=== PATIENT | female | born 1970 | race Caucasian/White ===

== ENCOUNTER 2022-08-14 17:39 | Emergency (ER) | payer BC, SELFPAY ==
[2022-08-14 17:47] VITALS: BP 141/80; PULSE 82; RESP 16; TEMP 36.3; O2SAT 99
[2022-08-14 17:48] VITALS: BP 141/80; PULSE 82; RESP 16; TEMP 36.3; O2SAT 99
--- NOTE | 2022-08-14 17:52 | ED.URI ---
HPI - URI/Sore Throat General Chief Complaint: Upper Respiratory Infection Stated Complaint: cold flu Time Seen by Provider: 08/14/22 17:52 History of Present Illness HPI Narrative: PATIENT PRESENTS WITH SORE THROAT AND COUGH NEGATIVE COVID TEST AT HOME TODAY. NO TROUBLE SWALLOWING AND NO DROOLING NO KNOWN EXPOSURE. Related Data Home Medications Medication Instructions Recorded Confirmed rimegepant 75 mg disintegrating 75 mg PO ONCE PRN Headache 08/14/22 08/14/22 tablet (Nurtec ODT) trazodone 50 mg tablet 50 mg PO HS PRN Pain 08/14/22 08/14/22 Allergies Allergy/AdvReac Type Severity Reaction Status Date / Time iohexol Allergy Unknown Verified 08/14/22 17:46 [From contrast - CT, X-RAY] Review of Systems Review of Systems: CONSTITUTIONAL: DENIES CHILLS, OR SWEATS. REPORTS FEVER AND GENERALIZED BODY ACHES EYES: DENIES VISUAL CHANGES, REDNESS, OR DISCHARGE. ENT: DENIES OTALGIA. REPORTS NASAL CONGESTION RUNNY NOSE AND SORE THROAT CARDIOVASCULAR: DENIES CHEST PAIN, PALPITATIONS, OR EDEMA. RESPIRATORY: DENIES DYSPNEA. REPORTS OCCASIONAL COUGH GASTROINTESTINAL: DENIES ABDOMINAL PAIN, NAUSEA, VOMITING, OR DIARRHEA. GENITOURINARY: DENIES DYSURIA OR HEMATURIA. SKIN: DENIES RASH OR ITCHING. MUSCULOSKELETAL: DENIES BACK PAIN, JOINT PAIN, OR MYALGIA. REPORTS GENERALIZED BODY ACHES NEUROLOGIC: DENIES HEADACHE, NUMBNESS, OR WEAKNESS. PSYCHIATRIC: DENIES ANXIETY OR DEPRESSION. PMFSH Comments AT TIME OF SIGNATURE, AGREE WITH NURSING PAST MEDICAL, SURGICAL, SOCIAL AND FAMILY HISTORY. THERE IS NO RELEVANT FAMILY HISTORY PERTINENT TO THE PRESENTING COMPLAINT Exam Narrative: THE PATIENT IS A WELL-DEVELOPED, WELL-NOURISHED IN NO ACUTE DISTRESS. SKIN: SKIN IS WARM AND DRY WITHOUT ERYTHEMA, SWELLING OR EXUDATE. THERE IS GOOD TURGOR. NO TENTING. HEAD: ATRAUMATIC. NORMOCEPHALIC. NO TEMPORAL OR SCALP TENDERNESS. EYES: MOIST AND BRIGHT. SCLERA AND CONJUNCTIVAE NORMAL. NO DISCHARGE. PERRLA. EXTRAOCULAR MOTIONS INTACT. GROSS VISUAL ACUITY INTACT. EARS: PINNA IS NORMAL SHAPE AND CONTOUR. CLEAR EXTERNAL AUDITORY CANALS. TM PEARLY LUNA WITH GOOD CONE OF LIGHT, NO ERYTHEMA OR SUPPURATION. BILATERAL CERUMEN NOTED NO GROSS HEARING DEFICIT. NOSE: PINK, MOIST MUCOSA WITH GOOD AIR MOVEMENT. CLEAR RHINORRHEA WITHOUT NASAL FLARING. SEPTUM MIDLINE. MOUTH: MOIST MUCOUS MEMBRANES. THROAT; MILD ERYTHEMA NOTED TO POSTERIOR OROPHARYNX WITH MODERATE POSTNASAL DRAINAGE. WITHOUT EXUDATE OR ULCERATION.. UVULA MIDLINE. NORMAL MOVEMENT OF SOFT PALATE. NECK: SUPPLE AND NONTENDER WITH FULL RANGE OF MOTION WITHOUT DISCOMFORT. NO MENINGEAL SIGNS. LUNGS: EQUAL AND BILATERAL BREATH SOUNDS WITHOUT WHEEZES, RALES OR RHONCHI. CHEST: THE CHEST WALL IS WITHOUT RETRACTIONS OR USE OF ACCESSORY MUSCLES. HEART: HAS A REGULAR RATE AND RHYTHM WITHOUT MURMUR, GALLOPS, CLICK OR RUB. ABDOMEN: SOFT, NONTENDER WITH POSITIVE ACTIVE BOWEL SOUNDS. NO REBOUND TENDERNESS. EXTREMITIES: WITHOUT CYANOSIS, CLUBBING OR EDEMA. EQUAL 2+ DISTAL PULSES AND 2 SECOND CAPILLARY REFILL NOTED. NEUROLOGIC: ALERT, ACTIVE, . THE PATIENT MOVES ALL EXTREMITIES WITH NORMAL MUSCLE STRENGTH. NORMAL MUSCLE TONE IS NOTED. NORMAL COORDINATION IS NOTED. NO FOCAL NEUROLOGICAL FINDINGS NOTED. Course Course Level of Care: Express Care Visit Vital Signs Vital signs: Vital Signs Temperature 36.3 C L 08/14/22 17:47 Pulse Rate 82 08/14/22 17:47 Respiratory Rate 16 08/14/22 17:47 Blood Pressure 141/80 H 08/14/22 17:47 Pulse Oximetry 99 08/14/22 17:47 Oxygen Delivery Room Air 08/14/22 17:47 Temperature 36.3 C L 08/14/22 17:48 Pulse Rate 82 08/14/22 17:48 Respiratory Rate 16 08/14/22 17:48 Blood Pressure 141/80 H 08/14/22 17:48 Pulse Oximetry 99 08/14/22 17:48 Oxygen Delivery Room Air 08/14/22 17:48 PLEASE JANN SCHEDULE A FOLLOWUP VISIT WITH YOUR PERSONAL PHYSICIAN FOR FURTHER EVALUATION AND TREATMENT. INCLUDING RECHECK AND DISCUSSION OF YOUR BLOOD PRESSURE. IF YOUR SYM
== END 2022-08-14 18:07 | disposition home or self-care (01) ==
PROVIDERS: Emergency Provider Nurse Practitioner Family; PCP Nurse Practitioner Family
DX: J02.9 Acute pharyngitis, unspecified (principal); J06.9 Acute upper respiratory infection, unspecified
CPT/HCPCS: 87081; 87880; 99213; G0463

== ENCOUNTER 2022-10-13 17:55 | Emergency (ER) | payer BC, SELFPAY ==
[2022-10-13 17:59] VITALS: BP 135/77; PULSE 84; RESP 18; TEMP 37.4; O2SAT 100
--- NOTE | 2022-10-13 20:35 | ED.UPPEXIN ---
HPI - Extremity Injury (Upper) General Chief Complaint: Extremity Injury, Upper Stated Complaint: Right Arm Injury Time Seen by Provider: 10/13/22 20:30 Source: patient, RN notes reviewed and old records reviewed Mode of arrival: ambulatory Limitations: no limitations History of Present Illness HPI narrative: 52-year-old female who presents to [facility] with complaints of pain to her right forearm and swelling after using manual hedge trimmers 3 days ago. Patient reports next day after use of leigh she had the right forearm swelling and tenderness with symptoms increasing. Patient has strong right arm pulses, denies any tingling or numbness, increased pain with movement and any use. Patient is right hand dominant.She reports that she has taken Ibuprofen,Tylenol, used ice to forearm, taken turmeric and oxycodone. MD complaint: injury to: right and forearm Handedness: right Severity scale (1-10): 3 Treatments prior to arrival: cold therapy, NSAIDS and other (Tylenol and pain medication) Related Data Home Medications Medication Instructions Recorded Confirmed rimegepant 75 mg disintegrating 75 mg PO ONCE PRN Headache 08/14/22 10/13/22 tablet (Nurtec ODT) trazodone 50 mg tablet 50 mg PO HS PRN Sleep 08/14/22 10/13/22 norethindrone 1 mg-ethinyl 1 tablet PO DAILY 10/13/22 10/13/22 estradiol 20 mcg (21)-iron 75 mg (7) tablet (Liza Fe 08/06 ()) phentermine 15 mg capsule 15 mg PO DAILY 10/13/22 10/13/22 Allergies Allergy/AdvReac Type Severity Reaction Status Date / Time iohexol Allergy Unknown Verified 10/13/22 18:27 [From contrast - CT, X-RAY] Review of Systems Review of Systems: CONSTITUTIONAL: Denies fever, chills, or sweats. EYES: Denies visual changes, redness, or discharge. ENT: Denies rhinorrhea, congestion, sore throat, or otalgia. CARDIOVASCULAR: Denies chest pain, palpitations, or edema. RESPIRATORY: Denies cough or dyspnea. GASTROINTESTINAL: Denies abdominal pain, nausea, vomiting, or diarrhea. GENITOURINARY: Denies dysuria or hematuria. SKIN: Denies rash or itching. MUSCULOSKELETAL: Denies back pain, positive for pain and some swelling to right forearm, or myalgia. NEUROLOGIC: Denies headache, numbness, or weakness. PSYCHIATRIC: Denies anxiety or depression. All systems reviewed & are unremarkable except as noted in HPI and below PMFSH Past Medical History Medical History (Updated 10/17/22 @ 10:15 by Yuki Portillo NP) Endometriosis Hx of migraines Social History Social History (Updated 10/17/22 @ 10:16 by Yuki Portillo NP) Smoking status: Never smoker Alcohol intake: current Alcohol use details: social Substance use type: does not use Living arrangements: with family Gender identity (if verbalized by the patient): Female Comments At time of signature, agree with nursing past medical, surgical, social and family history. There is no relevant family history pertinent to the presenting complaint Exam Narrative: GENERAL: Well-appearing, well-nourished, and in no acute distress. HEAD: Normocephalic, atraumatic. EYES: PERRLA and EOMI ENT: Nares clear, no rhinorrhea or epistaxis. Mucous membranes moist.TM's normal with good light reflex, throat pink with no lesions or swelling NECK: Supple.no lymphadenopathy CHEST: Clear to auscultation. No respiratory distress.SAO2 100% on room air HEART: Regular rate and rhythm. No murmur heard. Normal peripheral pulses. ABDOMEN: Soft, nontender, nondistended, normal active bowel sounds. EXTREMITIES: Normal range of motion. No edema.Positive for mild swelling to right forearm with pain especially on movement of lower arm. mobility,sensation and circulation is itact SKIN: Warm, dry, no rash. NEURO: No focal deficits. Alert and oriented x3. Course Course Emergency Course: Patient is aware of diagnosis, understands and agrees to treatment plan.? Anticipatory guidance given.? Patient agrees to follow-up as directed and is aware of reas
== END 2022-10-13 20:45 | disposition home or self-care (01) ==
PROVIDERS: Emergency Provider Registered Nurse; PCP Nurse Practitioner Family
DX: M77.8 Other enthesopathies, not elsewhere classified (principal); N80.9 Endometriosis, unspecified
CPT/HCPCS: 99213; G0463

== ENCOUNTER 2023-04-20 10:33 | Emergency (ER) | payer OTHER, SELFPAY ==
[2023-04-20 10:43] VITALS: BP 125/80; PULSE 90; RESP 18; TEMP 36.7; O2SAT 98
--- NOTE | 2023-04-20 10:49 | ED.URI ---
HPI - URI/Sore Throat General Chief Complaint: Upper Respiratory Infection Stated Complaint: Shortness of Breath,Fatigue,Cough,Sore Throat Time Seen by Provider: 04/20/23 11:00 Source: patient and RN notes reviewed Mode of arrival: ambulatory Limitations: no limitations History of Present Illness HPI Narrative: 53-year-old female presents with concern for 3 day history of fatigue, sore throat, nasal congestion and drainage, cough, body aches, fever, chills. She reports she took of negative COVID test at home. Her primary doctor over the phone prescribed her steroids, inhaler, Tessalon Perles. She reports the Tessalon Perles are not effective. She reports history of bronchitis. MD elicited complaint: cough and sore throat Related Data Home Medications Medication Instructions Recorded Confirmed rimegepant 75 mg disintegrating 75 mg PO ONCE PRN Headache 08/14/22 04/20/23 tablet (Nurtec ODT) trazodone 50 mg tablet 50 mg PO HS PRN Sleep 08/14/22 04/20/23 norethindrone 1 mg-ethinyl 1 tablet PO DAILY 10/13/22 04/20/23 estradiol 20 mcg (21)-iron 75 mg (7) tablet (Liza Fe / (28)) albuterol sulfate 90 mcg/actuation 90 mcg inhalation DIRECTED 04/20/23 04/20/23 aerosol inhaler liraglutide 0.6 mg/0.1 mL (18 mg/3 0.6 mg subcut DIRECTED 04/20/23 04/20/23 mL) subcutaneous pen injector (Victoza 3-Yan) methylprednisolone 4 mg tablets in 4 mg DIRECTED 04/20/23 04/20/23 a dose pack Allergies Allergy/AdvReac Type Severity Reaction Status Date / Time iohexol Allergy Unknown Verified 10/13/22 18:27 [From contrast - CT, X-RAY] Review of Systems Review of Systems: CONSTITUTIONAL: Reports malaise, chills, sweats, or fever. EYES: Denies visual changes, redness, or discharge. ENT: Reports rhinorrhea, congestion, and sore throat. CARDIOVASCULAR: Denies chest pain, palpitations, or edema. RESPIRATORY: Reports cough. Denies dyspnea. GASTROINTESTINAL: Denies abdominal pain, nausea, vomiting, diarrhea SKIN: Denies rash or itching. MUSCULOSKELETAL: Reports myalgia. NEUROLOGIC: Reports headache. All systems reviewed & are unremarkable except as noted in HPI and below PMFSH Past Medical History Medical History (Updated 04/20/23 @ 11:19 by Edda Nichole NP) Endometriosis Hx of migraines Social History Social History (Updated 10/17/22 @ 10:16 by Yuki Portillo NP) Smoking status: Never smoker Alcohol intake: current Alcohol use details: social Substance use type: does not use Living arrangements: with family Gender identity (if verbalized by the patient): Female Comments At time of signature, agree with nursing past medical, surgical, social and family history. There is no relevant family history pertinent to the presenting complaint Exam Narrative: GENERAL: Nontoxic-appearing and in no acute distress. HEAD: Normocephalic EYES: PERRLA, conjunctivae clear ENT: Nares clear, turbinates edematous and erythematous, clear discharge. Mucous membranes moist. TM pearly aguirre with light reflex bilaterally; no tragal tenderness. Oropharynx not erythematous without lesions. Tonsils not enlarged and without exudate, no drooling, no hoarseness, no trismus, uvula midline. NECK: Supple. No lymphadenopathy CHEST: Clear to auscultation, breath sounds equal. No wheezing, rhonchi, rales, or stridor. No respiratory distress, speaks in full sentences. HEART: Regular rate and rhythm. No murmur heard. SKIN: Warm, dry, no rash. NEURO: Alert and oriented x3. PSYCH: Normal mood and affect Course Course Emergency Course: Patient is aware of diagnosis, understands and agrees to treatment plan. Anticipatory guidance given. Patient agrees to follow-up as directed and is aware of reasons to seek care at the emergency department. Portions of this record may have been created with voice recognition software Level of Care: Express Care Visit Vital Signs Vital signs: Vital Signs Temperature
== END 2023-04-20 11:24 | disposition home or self-care (01) ==
PROVIDERS: Emergency Provider Nurse Practitioner; PCP Nurse Practitioner Family
DX: J06.9 Acute upper respiratory infection, unspecified (principal); Z79.899 Other long term (current) drug therapy
CPT/HCPCS: 87081; 87804; 87880; 99213; G0463

== ENCOUNTER 2023-06-05 16:28 | Emergency (ER) | payer OTHER, SELFPAY ==
[2023-06-05 16:40] VITALS: BP 141/77; PULSE 103; RESP 16; TEMP 37.3; O2SAT 98
--- NOTE | 2023-06-05 16:47 | ED.GENADULT ---
HPI - General Adult General Chief complaint: Upper Respiratory Infection Stated complaint: sorethroat,cough,fever Time Seen by Provider: 06/05/23 16:47 Source: patient Mode of arrival: ambulatory Limitations: no limitations History of Present Illness HPI narrative: 53-year-old female patient presents to the [facility] with complaints of URI symptoms that started yesterday. Patient states she has had body aches, chills, fevers, sore throat. Denies chest pain or shortness of breath. Denies abdominal pain, nausea, vomiting or diarrhea. Patient states she has taken some [id number] Tylenol cold and flu medication for her symptoms. Related Data Home Medications Medication Instructions Recorded Confirmed rimegepant 75 mg disintegrating 75 mg PO ONCE PRN Headache 08/14/22 06/05/23 tablet (Nurtec ODT) trazodone 50 mg tablet 50 mg PO HS PRN Sleep 08/14/22 06/05/23 albuterol sulfate 90 mcg/actuation 90 mcg inhalation DIRECTED 04/20/23 06/05/23 aerosol inhaler liraglutide 0.6 mg/0.1 mL (18 mg/3 0.6 mg subcut DIRECTED 04/20/23 06/05/23 mL) subcutaneous pen injector (Victoza 3-Yan) buspirone 10 mg tablet 10 mg PO BID 06/05/23 06/05/23 dicyclomine 20 mg tablet 20 mg PO PRN PRN Stomach Upset 06/05/23 06/05/23 norethindrone acetate 1 mg-ethinyl 1 tablet PO DAILY 06/05/23 06/05/23 estradiol 20 mcg tablet (Microgestin) tramadol 50 mg tablet 50 mg PO PRN PRN Migraine Headache 06/05/23 06/05/23 Allergies Allergy/AdvReac Type Severity Reaction Status Date / Time iohexol AdvReac Mild Hives Verified 06/05/23 16:37 [From contrast - CT, X-RAY] Review of Systems Review of Systems: CONSTITUTIONAL: Positive fever, body aches and chills, denies sweats. EYES: Denies visual changes, redness, or discharge. ENT: positive rhinorrhea, congestion, sore throat, denies otalgia. CARDIOVASCULAR: Denies chest pain, palpitations, or edema. RESPIRATORY: denies cough or dyspnea. GASTROINTESTINAL: Denies abdominal pain, nausea, vomiting, or diarrhea. GENITOURINARY: Denies dysuria or hematuria. SKIN: Denies rash or itching. MUSCULOSKELETAL: Denies back pain, joint pain, or myalgia. NEUROLOGIC: positive headache, denies numbness, or weakness. PSYCHIATRIC: Denies anxiety or depression. PMFSH Past Medical History Medical History Endometriosis Hx of migraines Social History Social History Smoking status: Never smoker Alcohol intake: current Alcohol use details: social Substance use type: does not use Living arrangements: with family Gender identity (if verbalized by the patient): Female Comments At the time of my signature I agree with nursing past medical history, surgical, social, and family history. There is no relevant family history pertinent to the presenting complaint. Exam Narrative: GENERAL: Well-appearing, well-nourished, and in no acute distress. HEAD: Normocephalic, atraumatic. EYES: PERRLA and EOMI. ENT: Nares with erythema and edema noted bilaterally, no rhinorrhea or epistaxis. Mucous membranes moist. posterior pharynx with slight erythema but no tonsillar enlargement, no exudates or lesions present. Bilateral TMs are clear no erythema foreign bodies the canal. NECK: Supple. No lymphadenopathy CHEST: Clear to auscultation. No respiratory distress. HEART: Regular rate and rhythm. No murmur heard. Normal peripheral pulses. ABDOMEN: Soft, nontender, nondistended, normal active bowel sounds. EXTREMITIES: Normal range of motion. No edema. SKIN: Warm, dry, no rash. NEURO: No focal deficits. Alert and oriented x3. Course Course Level of Care: Express Care Visit Vital Signs Vital signs: Vital Signs Temperature 37.3 C 06/05/23 16:40 Pulse Rate 103 H 06/05/23 16:40 Respiratory Rate 16 06/05/23 16:40 Blood Pressure 141/77 H 06/05/23 16:40 Pulse Oximetr
== END 2023-06-05 17:02 | disposition home or self-care (01) ==
PROVIDERS: Emergency Provider Nurse Practitioner Family; PCP Nurse Practitioner Family
DX: J02.0 Streptococcal pharyngitis (principal); Z79.891 Long term (current) use of opiate analgesic; Z79.899 Other long term (current) drug therapy; Z20.822 Contact with and (suspected) exposure to COVID-19
CPT/HCPCS: 87426; 87804; 87880; 99213; C9803; G0463

== ENCOUNTER 2024-01-02 18:05 | Emergency (ER) | payer OTHER, BC, SELFPAY ==
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
[2024-01-02 18:06] VITALS: BP 149/86; PULSE 88; RESP 18; TEMP 37.4; O2SAT 96
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
[2024-01-02 20:43] VITALS: BP 142/87; PULSE 72; RESP 18; O2SAT 98
== END 2024-01-02 20:44 | disposition home or self-care (01) ==
PROVIDERS: Emergency Provider General Practice; PCP Nurse Practitioner Family
DX: S13.4XXA Sprain of ligaments of cervical spine, initial encounter (principal); S00.83XA Contusion of other part of head, initial encounter; V43.52XA Car driver injured in collision with other type car in traffic accident, initial encounter
CPT/HCPCS: 70450; 70486; 72125; 99284

== ENCOUNTER 2024-01-27 01:32 | Day surgery (SDC) | payer BC, SELFPAY ==
[2024-01-17 12:56] VITALS: BMI 27.6
[2024-01-27 09:11] VITALS: BP 132/72; PULSE 90; RESP 18; TEMP 36.6; O2SAT 100
[2024-01-27] MEDS: LACTATED RINGERS 1,000 ML 150 ML IV CONT (09:23)
--- NOTE | 2024-01-27 09:23 | P.PNAN_ITS ---
Anes - Initial Pre Proc Eval Procedure: Operation Date: 01/27/24 15:00 Proposed Procedures p Esophagogastroduodenoscopy & Colonoscopy - Amador Kaba MD Date/Time: 01/27/24 09:23 Surgeon: Amador Kaba MD Pre Op Diagnosis: Mixed irritable bowel syndrome, other specified sy Patient Data Age: 53 Gender: F Height: 1.55 m Weight: 67.2 kg Last Vital Signs Temp 97.8 F 01/27/24 09:11 Pulse 90 01/27/24 09:11 Resp 18 01/27/24 09:11 BP 132/72 01/27/24 09:11 Pulse Ox 100 01/27/24 09:11 O2 Del Method Room Air 01/27/24 09:11 Allergies Allergy/AdvReac Type Severity Reaction Status Date / Time iohexol Allergy Intermediate Hives Verified 01/27/24 09:08 [From contrast - CT, X-RAY] Home Medications Medication Instructions Recorded Confirmed Type trazodone 50 mg tablet 50 mg PO HS PRN Sleep 08/14/22 01/17/24 History albuterol sulfate 90 mcg/actuation 90 mcg inhalation DIRECTED 04/20/23 01/17/24 History aerosol inhaler liraglutide 0.6 mg/0.1 mL (18 mg/3 0.6 mg subcut DIRECTED 04/20/23 01/17/24 History mL) subcutaneous pen injector (Victoza 3-Yan) dicyclomine 20 mg tablet 20 mg PO PRN PRN Stomach Upset 06/05/23 01/17/24 History norethindrone acetate 1 mg-ethinyl 1 tablet PO DAILY 06/05/23 01/17/24 History estradiol 20 mcg tablet (Microgestin) tramadol 50 mg tablet 50 mg PO PRN PRN Migraine Headache 06/05/23 01/17/24 H istory hydroxyzine HCl 25 mg tablet 25 mg PO BID PRN Anxiety 01/17/24 01/17/24 History phentermine 37.5 mg capsule 37.5 mg PO DAILY PRN APPETITE 01/17/24 01/17/24 History SUPPRESS ubrogepant 50 mg tablet (Ubrelvy) 50 mg PO DAILY PRN Migraine 01/17/24 01/17/24 History Headache Patient hx anesthesia problems: none Family hx anesthesia problems: none Results Review: All pre-operative results and documents have been reviewed as part of the pre- operative evaluation. [facility] Past Medical History Medical History Endometriosis Hx of migraines Social History Social History Smoking status: Never smoker Alcohol intake: current Alcohol use details: social Substance use: never Substance use type: does not use Living arrangements: with family Gender identity (if verbalized by the patient): Female Spiritual care concerns: No Anes - Eval Final PreProcedure Day of Procedure 01/27/24 09:23 Patient weight: normal Heart: regular rate and rhythm Lungs: clear to auscultation Airway: Mallampati scale class II Neurological: alert and oriented Last oral intake: >/= 8 hours ASA classification: III Emergent: no Anesthetic plan: proceed Anesthesia type and monitoring: general GIVS and standard monitoring Results Review: All pre-operative results and documents have been reviewed as part of the pre- operative evaluation. Informed Consent: The patient's anesthetic plan and its attendant risks and benefits were discussed with the patient/family/POA. Questions were solicited and answers provided to the satisfaction of the patient/family/POA.
--- NOTE | 2024-01-27 09:37 | PM.HPGS ---
History of Present Illness History of Present Illness Consent: Risks, benefits, and alternatives have been discussed and questions answered. Patient agrees to proceed with procedure. Chief complaint: Mixed irritable bowel syndrome, other specified sy Narrative: Taina Meneses is a 53 year old female here for egd and colonoscopy, never had egd, colonoscoyp at 33 yo, she has been dealing with GI issues since 16 yo with intermittent nausea and vomiting, sometimes abdominal discomfort after eating certain meals and loose stools. Using bentyl only as needed. Review of Systems Review of Systems: All systems reviewed & are unremarkable except as noted in HPI and below PMFSH Past Medical History Medical History Endometriosis Hx of migraines Social History Social History Smoking status: Never smoker Alcohol intake: current Alcohol use details: social Substance use: never Substance use type: does not use Living arrangements: with family Gender identity (if verbalized by the patient): Female Spiritual care concerns: No Meds Home Medications and Allergies Home Medications Medication Instructions Recorded Confirmed Type trazodone 50 mg tablet 50 mg PO HS PRN Sleep 08/14/22 01/17/24 History albuterol sulfate 90 mcg/actuation 90 mcg inhalation DIRECTED 04/20/23 01/17/24 History aerosol inhaler liraglutide 0.6 mg/0.1 mL (18 mg/3 0.6 mg subcut DIRECTED 04/20/23 01/17/24 History mL) subcutaneous pen injector (Victoza 3-Yan) dicyclomine 20 mg tablet 20 mg PO PRN PRN Stomach Upset 06/05/23 01/17/24 History norethindrone acetate 1 mg-ethinyl 1 tablet PO DAILY 06/05/23 01/17/24 History estradiol 20 mcg tablet (Microgestin) tramadol 50 mg tablet 50 mg PO PRN PRN Migraine Headache 06/05/23 01/17/24 History hydroxyzine HCl 25 mg tablet 25 mg PO BID PRN Anxiety 01/17/24 01/17/24 History phentermine 37.5 mg capsule 37.5 mg PO DAILY PRN APPETITE 01/17/24 01/17/24 History SUPPRESS ubrogepant 50 mg tablet (Ubrelvy) 50 mg PO DAILY PRN Migraine 01/17/24 01/17/24 History Headache Allergies Allergy/AdvReac Type Severity Reaction Status Date / Time iohexol Allergy Intermediate Hives Verified 01/27/24 09:08 [From contrast - CT, X-RAY] Vital Signs Vital Signs - 24 hr 01/27/24 09:11 Temperature 97.8 F Pulse Rate 90 Respiratory Rate 18 Blood Pressure 132/72 Pulse Oximetry 100 Oxygen Delivery Room Air Exam Const: General: comfortable and no acute distress HENMT: Face/Nose/Sinus: Normal nares present Eyes: General: appearance normal, both eyes and all related structures Neck: Neck: no JVD Resp: Auscultation: clear to auscultation bilaterally Cardio: Rate: regular rate Rhythm: regular rhythm GI: Inspection: non-distended GI Palp: Yes Soft to palpation Skin: General skin exam: normal color Neuro: General: gait normal Speech: normal speech Extrem: General: normal to inspection Psych: Mental Status: mental status grossly normal Assessment and Plan Assessment and plan (1) Alternating constipation and diarrhea: Code(s): R19.8 - Other specified symptoms and signs involving the digestive system and abdomen Status: Acute Assessment and Plan: colonoscopy (2) Mixed irritable bowel syndrome: Code(s): K58.2 - Mixed irritable bowel syndrome Status: Acute (3) Nausea and vomiting: Code(s): R11.2 - Nausea with vomiting, unspecified Status: Acute Assessment and Plan: egd (4) Generalized postprandial abdominal pain: Code(s): R10.84 - Generalized abdominal pain Status: Acute
--- NOTE | 2024-01-27 09:49 | SUR.OPER ---
EGD ended at 944, colon began at 947
[2024-01-27 09:58] VITALS: BP 102/63; PULSE 77; RESP 13; O2SAT 98
[2024-01-27 10:08] VITALS: BP 104/69; PULSE 69; RESP 15; O2SAT 98
[2024-01-27 10:18] VITALS: BP 116/69; PULSE 71; RESP 23; O2SAT 98
== END 2024-01-27 10:29 | disposition home or self-care (01) ==
PROVIDERS: PCP Nurse Practitioner Family; Referring Provider Nurse Practitioner; Visit Provider Internal Medicine Gastroenterology
PROC: 0DJ08ZZ Inspection of Upper Intestinal Tract, Via Natural or Artificial Opening Endoscopic (ICD-10-PCS; CPT 43235; principal; 2024-01-27 15:00)
DX: K29.50 Unspecified chronic gastritis without bleeding (principal); K57.30 Diverticulosis of large intestine without perforation or abscess without bleeding; K58.2 Mixed irritable bowel syndrome; N80.9 Endometriosis, unspecified; Z79.51 Long term (current) use of inhaled steroids; Z79.85 Long-term (current) use of injectable non-insulin antidiabetic drugs; Z79.891 Long term (current) use of opiate analgesic
CPT/HCPCS: 43239; 45380; 88305; J2704; J7120

== ENCOUNTER 2025-02-23 14:17 | Emergency (ER) | payer BC, SELFPAY ==
--- OUTSIDE RECORDS SUMMARY | 2025-02-23 14:20 | XMS_ITS | Clinical Summary ---
Author Organization [facility] Address [address] [place] [address] Phone Care Team Providers Care Blending Tank Tender Helper Name Role Phone Jax, Iona SHEPPARD, SEAL DELIVERY VEHICLE OFFICER Primary Care Provider [phone] Indra Brush MD Unavailable [phone] Nancy Sebastian APRN, SOAP BOILER Unavailable [phone] Allergies Active Allergy Reactions Criticality Noted Date Comments Iodinated Contrast Media Hives,Itching Medium 02/08/20 24 Medications albuterol 108 (90 Base) MCG/ACT Aerosol Solution take 2 Puffs by inhalation every 4 hours as needed. Active Norethin Tyrone-Eth Estrad-FE 1-20 MG-MCG Tablet Take 1 Tablet by mouth daily. Active traZODone (DESYREL) 50 MG Tablet Take 50 mg by mouth nightly as needed. Active hydrOXYzine (ATARAX) 25 MG Tablet Take 25 mg by mouth 3 times daily. PRN Active botulinum Toxin Type A (Botox) 200 units Recon SolnIndications :Chronic migraine w/o aura w/o status migrainosus, not intractable 155 Units by Intramuscular route every 90 days. 1 Each 3 4 Active FLUoxetine (PROzac) 10 MG Capsule TAKE 1 CAPSULE BY MOUTH TWICE DAILY NEEDED FOR DEPRESSION/ANXIET Y 4 Active Lasmiditan Succinate (Reyvow) 50 MG TabletIndicatio ns:Chronic migraine w/o aura w/o status migrainosus, not intractable Take 1 Tablet by mouth once as needed for Other for up to 1 dose. 8 Tablet 2 4 Active methylPREDNISol one (MEDROL DOSPACK) 4 MG Tablet Therapy PackIndications :Acute migraine Use as per instructions on package. 1 Tablet 4 Active Active Problems No known active problems Encounters Date Type Department Care Team Description 12/31/2024 3:00 PM CDT Outpatient Clinic Visit [facility] [address] [place] [phone] Bruce Yoon PSYD Unspecfified neurodevelopmental disorder (Primary Dx); Major depressive disorder, recurrent episode, severe (HCC) Discharge Disposition: Discharged to home or Selfcare 12/31/2024 Travel from Last 3 Months Family History Medical History Relation Name Comments Lung Cancer Mother Relation Name Status Comments Daughter Alive Father Alive Mother Son Alive Social History Tobacco Use Types Packs/Day Years Used Date Smoking Tobacco: Never Smokeless Tobacco: Never Tobacco Cessation:Counseling Given: Not Answered Alcohol Use Standard Drinks/Week Comments Not Currently 0 (1 standard drink = 0.6 oz pur e alcohol) Comments No Sex and Gender Information Value Date Recorded Sex Assigned at Not on file Legal Sex Female 10:13 AM FRAME MAKER Gender Identity Not on file Sexual Orientation Not on file Last Filed Vital Signs Vital Sign Reading Time Taken Comments Blood Pressure 117/66 05/27/2024 2:15 PM FRAME MAKER Pulse 73 05/27/2024 2:15 PM FRAME MAKER Temperature 37.1 C (98.8 F) 05/27/2024 11:26 AM FRAME MAKER Respiratory Rate 13 05/27/2024 2:15 PM FRAME MAKER Oxygen Saturation 99% 05/27/2024 2:15 PM FRAME MAKER Inhaled Oxygen Concentration - - Weight 72.4 kg (159 lb 9.8 oz) 05/27/2024 11:26 AM FRAME MAKER Height 157.5 cm (5' 2) 05/27/2024 11:26 AM FRAME MAKER Body Mass Index 29.19 05/27/2024 11:26 AM FRAME MAKER Plan of Treatment Upcoming Encounters Date Type Department Care Team (Latest Contact Info) Description 03/11/2025 1:00 PM CDT [facility] [address] [place] [address] Bruce Yoon PSYD [place] Discharge Disposition: Discharged to home or Selfcare 03/27/2025 2:00 PM CDT Outpatient Clinic Visit [facility] [address] [place] [address] Bruce Yoon PSYD [place] Discharge Disposition: Discharged to home or Selfcare 04/15/2025 3:00 PM CDT Outpatient Clinic Visit [facility] [address] [place] [address] Bruce Yoon PSYD [place] Discharge Disposition: Discharged to home or Selfcare Health Maintenance Due Date Last Done Comments Hepatitis C Virus (HCV) Screening 1971 Mammogram 1971 TdaP Immunization 1971 Hepatitis B Immunization (1 of 3 - 19+ 3-dose series) 1990 Pap Smear 02/20/1992 Cervical Cancer Screening (CCS) 2001 HPV/Cotest 2001 Cologuard 02/20/2016 Colonoscopy 02/20/2016 Colorectal Cancer Screening 02/20/2016 Immunochemical Fecal Occult Blood 02/20/2016 Pneumococcal Immunization (5 0+ years) (1 of 1 - PCV) 2021 Zoster Immunization (1 of 2) 2021 SARS-COV-2 Immunization (3 - season) 2024 06/30/2021, 06/09/2021 Influenza Immunization (#1) 2025 Respiratory Syncytial Virus (RSV) Immunization (Adult) (1 - 1-dose 75+ series) 2046 Human Papillomavirus (HPV) Immunization Aged Out No longer eligible b ased on patient's age to complete this topic Meningococcal Immunization (ACWY) Aged Out No longer eligible b ased on patient's age to complete this topic Rotavirus Immunization Aged Out No lo nger eligible based on patient's age to complete this topic Goals Goal Patient Goal Type Associated Problems Recent Progress Patient-Stated? Author Psychological assessment Behavioral Health Bruce Larson, ALAINA Note: Patient will participate fully in a psychological assessment within the next 60 days to determine the presence of a psychological condition. Insurance [facility] [id number] [place] [address] [place] T[place] Care Teams Blending Tank Tender Helper Relationship Specialty Start Date End Date Camara, SILVER Monson, SEAL DELIVERY VEHICLE OFFICER [address] [place] [address] PCP - General Family Medicine 03/23/23 Indra Brush MD [address] [place] [address] Consulting Physician Neurology 03/23/23 Nancy Sebastian APRN, SOAP BOILER [address] [place] [address] Nurse Practitioner Advanced Practice Nurse 05/19/23
--- OUTSIDE RECORDS SUMMARY | 2025-02-23 14:20 | XMS_ITS | Clinical Summary ---
Author Organization [facility] Address [address] [place] [phone] Care Team Providers Care Printed Products Assembler Name Role Phone Iona Camara NP Primary Care Provider Allergies Active Allergy Reactions Criticality Noted Date Comments Iodinated Contrast Media Rash Medium 03/14/2024 Medications benzonatate (TESSALON) 100 mg capsule TAKE 1 CAPSULE BY MOUTH THREE TIMES DAILY FOR 5 DAYS 4 Active dicyclomine (BENTYL) 20 mg tablet Take 1 tablet (20 mg total) by mouth 4 (four) times a day as needed 4 Active hydrOXYzine (ATARAX) 25 mg tablet Take 1 tablet (25 mg total) by mouth 2 (two) times a day as needed 4 Active traZODone (DESYREL) 50 mg tablet TAKE 2 TABLETS BY MOUTH ONCE DAILY AT BEDTIME 4 Active albuterol HFA (PROVENTIL HFA,VENTOLIN HFA,PROAIR HFA) 90 mcg/actuation inhaler Inhale 2 puffs every 4 (four) hours as needed Active Microgestin 1/20, 21, 1-20 mg-mcg per tablet Take 1 tablet by mouth daily 4 Active Victoza 3-Yan 0.6 mg/0.1 mL (18 mg/3 mL) injection 1.8 mg 4 Active nitrofurantoin (MACRODANTIN) 100 mg capsule Take 1 capsule (100 mg total) by mouth Active DULoxetine DR (CYMBALTA) 30 mg capsuleIndicati ons:Bilateral low back pain with sciatica, sciatica laterality unspecified, unspecified chronicity Take 1 capsule (30 mg total) by mouth daily after dinner 120 capsule 2 4 Active doxycycline (VIBRAMYCIN) 100 mg capsuleIndicati ons:Abscess of back Take 1 tablet/capsul e (100 mg total) by mouth 2 (two) times a day for 7 days 14 tablet/capsu le 5 02/28/20 25 Active mupirocin (BACTROBAN) 2 % ointmentIndicat ions:Abscess of back Apply topically 3 (three) times a day for 10 days 22 g 5 03/02/20 25 Active doxycycline (VIBRAMYCIN) 100 mg capsule Take 1 tablet/capsul e (100 mg total) by mouth 2 (two) times a day for 7 days 14 tablet/capsu le 5 02/21/20 25 Discontinu ed(Alterna te therapy) mupirocin (BACTROBAN) 2 % ointment Apply topically 3 (three) times a day for 10 days 22 g 5 02/21/20 25 Discontinu ed(Alterna te therapy) Active Problems Problem Noted Date Diagnosed Date Arthralgia 10/12/2023 Stress reaction 10/12/2023 Situational anxiety 10/12/2023 Greater trochanteric pain syndrome 10/12/2023 Low back pain 10/12/2023 Grief 10/12/2023 Encounters Date Type Department Care Team Description 02/20/2025 6:00 PM CDT Office Visit [facility] at [address] [phone] Saul Velarde NP Abscess of back (Primary Dx) from Last 3 Months Social History Tobacco Use Types Packs/Day Years Used Date Smoking Tobacco: Never Smokeless Tobacco: Never Social Connection and Isolat ion Panel [NHANES] Answer Date Recorded In a typical week, how many times do you talk on the phone with family, friends, or neighbors? More than three times a week 10/12/2023 How often do you get togethe r with friends or relatives? Once a week 10/12/2023 How often do you attend chur ch or evangelical services? 1 to 4 times per year 10/12/2023 Do you belong to any clubs o r organizations such as sabianist groups, unions, fraternal or athletic groups, or school groups? No 10/12/2023 How often do you attend meet ings of the clubs or organizations you belong to? Not asked 10/12/2023 Are you , , di vorced, , never , or living with a partner? 10/12/2023 Overall Financial Resource Strain (CARDIA) Answe r Date Recorded How hard is it for you to pa y for the very basics like food, housing, medical care, and heating? Somewhat hard 10/12/2023 PHQ-2 Answer Date Recorded Patient Health Questionnaire-2 Score 6 10/12/2023 [facility] - Occupational Stress Questionnaire Answer Date Recorded Do you feel stress - tense, restless, nervous, or anxious, or unable to sleep at night because your mind is troubled all the time - these days? Very much 10/12/2023 Exercise Vital Sign Answer Date Recorde d On average, how many days pe r week do you engage in moderate to strenuous exercise (like a brisk walk)? 0 days 10/12/2023 On average, how many minutes do you engage in exercise at this level? 0 min 10/12/2023 Hunger Vital Sign Answer Date Recorded Within the past 12 months, y ou worried that your food would run out before you got the money to buy more. Sometimes true Within the past 12 months, t he food you bought just didn't last and you didn't have money to get more. Never true PRAPARE - Transportation Answer Date Re corded In the past 12 months, has l ack of transportation kept you from medical appointments or from getting medications? No 09/16 In the past 12 months, has l ack of transportation kept you from meetings, work, or from getting things needed for daily living? No 10/12/2023 Housing Stability Vital Sign Answer Tenzin e Recorded In the last 12 months, was t here a time when you were not able to pay the mortgage or rent on time? No 10/12/2023 In the last 12 months, how many places have you lived? 1 10/12/2023 In the last 12 months, was t here a time when you did not have a steady place to sleep or slept in a prison (including now)? No 10/12/2023 Personal Safety Answer Date Recorded Have you ever been in or are you currently in a harmful physical or emotional relationship or is someone making you feel afraid or unsafe? Denies 03/14/2024 Comments Unknown Sex and Gender Information Value Date Recorded Sex Assigned at Not on file Legal Sex Female 11:03 AM SUPERVISOR SCRAP PREPARATION Gender Identity Not on file Sexual Orientation Not on file Obstetrics History Last Filed Vital Signs Vital Sign Reading Time Taken Comments Blood Pressure 132/84 02/20/2025 5:58 PM CDT Pulse 84 02/20/2025 5:58 PM CDT Temperature 36.9 C (98.4 F) 02/20/2025 5:58 PM CDT Respiratory Rate 20 02/20/2025 5:58 PM CDT Oxygen Saturation 98% 02/20/2025 5:58 PM CDT Inhaled Oxygen Concentration - - Weight 77.4 kg (170 lb 9.6 oz) 02/20/2025 5:58 P M CDT Height 154.9 cm (5' 1) 03/14/2024 4:10 PM CDT Body Mass Index 32.23 03/14/2024 4:10 PM CDT Plan of Treatment Health Maintenance Due Date Last Done Comments Breast Cancer Screening-Mammogram 1971 Cervical Cancer Screening 1971 Colon Cancer Screening-Colonoscopy 1971 Hepatitis C Screening 1971 DTaP/Tdap/Td Vaccine (1 - Tdap) 1982 Hepatitis B Screening 1989 Regular Well Visit/Exam 18-64 1989 Zoster Vaccine (1 of 2) 2021 Covid-19 Vaccine (3 - 2023-2 5 season) 2024 06/30/2021, 06/09/2021 Depression Screening 10/11/2024 10/12/2023 Influenza Vaccine (#1) 2025 Pneumococcal vaccine <65 Aged Out No longer eligible based on patient's age to complete this topic Insurance [employer] [place] Care Teams Printed Products Assembler Relationship Specialty Start Date End Date Iona Camara NP [address] [place] [id number] PCP - General Nurse Practitioner 10/12/23
--- OUTSIDE RECORDS SUMMARY | 2025-02-23 14:20 | XMS_ITS | Encounter Summary ---
Author Organization [facility] Address [address] [place] [address] Phone Care Team Providers Care Kalsominer Name Role Phone Jax, Iona SHEPPARD, CLEANING SPECIALIST Primary Care Provider [phone] Indra Brush MD Unavailable [phone] Nancy Sebastian PRINCIPAL RESEARCH ECONOMIST, ELECTRODE CLEANING MACHINE OPERATOR Unavailable [phone] Reason for Visit * Reason Comments Medication Refill Encounter Details Date Type Department Care Team (Late st Contact Info) Description 06/21/2023 Refill [facility] - Neurology - [place] [address] [place] [phone] Nancy Sebastian, PRINCIPAL RESEARCH ECONOMIST, ELECTRODE CLEANING MACHINE OPERATOR [address] [place] [address] Medication Refill Social History Tobacco Use Types Packs/Day Years Used Date Smoking Tobacco: Never Smokeless Tobacco: Never Alcohol Use Standard Drinks/Week Comments Not Currently 0 (1 standard drink = 0.6 oz pur e alcohol) Comments Unknown Sex and Gender Information Value Date Recorded Sex Assigned at Not on file Legal Sex Female 10:13 AM MANAGER PAID Gender Identity Not on file Sexual Orientation Not on file documented as of this encounter Miscellaneous Notes * Telephone Encounter - Samantha Warner RN - 06/22/2023 8:09 AM CST Medication failed the protocol, provider to review and approve the medication order if appropriate. Requested Prescriptions Pending Prescriptions Disp Refills Ubrelvy 50 MG Tablet [Pharmacy Med Name: Ubrelvy 50 MG Oral Tablet] 10 Tablet 0 Sig: TAKE 1 TABLET BY MOUTH NEEDED FOR MIGRAINE FOR UP TO 1 DOSE Not Delegated - Off Protocol Failed - 06/21/2023 9:39 PM Failed - This refill cannot be delegated Passed - Visit with relevant provider in past 12 months or upcoming 90 days Recent Visits Date Type Provider Dept 05/19/23 Office Visit Nancy Sebastian APRN, [facility] Neurology [facility] Showing recent visits within past 365 days and meeting all other requirements Future Appointments Date Type Provider Dept 07/04/23 Appointment Nancy Sebastian APRN, [facility] [address] Neurology [facility] 07/08/23 Appointment Indra Brush MD [facility] Showing future appointments within next 90 days and meeting all other requirements GER PAID documented in this encounter Plan of Treatment Upcoming Encounters Date Type Department Care Team (Latest Contact Info) Description 03/11/2025 1:00 PM CDT Outpatient Clinic Visit [facility] [address] [place] [phone] Bruce Yoon PSYD [place] Discharge Disposition: Discharged to home or Selfcare 03/27/2025 2:00 PM CDT Outpatient Clinic Visit [facility] [address] [place] [phone] Bruce Yoon PSYD [place] Discharge Disposition: Discharged to home or Selfcare 04/15/2025 3:00 PM CDT Outpatient Clinic Visit [facility] [address] [place] [phone] Bruce Yoon PSYD [place] Discharge Disposition: Discharged to home or Selfcare documented as of this encounter Visit Diagnoses Diagnosis Chronic migraine w/o aura w/o status migrainosus, not intractable Chronic migraine without aura, without mention of intractable migraine without mention of status migrainosus documented in this encounter Care Teams Kalsominer Relationship Specialty Start Date End Date Iona Camara APRN, CLEANING SPECIALIST [address] [place] [address] PCP - General Family Medicine 03/23/23 Indra Brush MD [address] [place] [address] Consulting Physician Neurology 03/23/23 Nancy Sebastian APRN, ELECTRODE CLEANING MACHINE OPERATOR [address] [place] [address] Nurse Practitioner Advanced Practice Nurse 05/19/23 documented as of this encounter
[2025-02-23 14:30] VITALS: BP 143/84; PULSE 83; RESP 20; TEMP 37; O2SAT 99
--- OUTSIDE RECORDS SUMMARY | 2025-02-23 16:03 | XMS_ITS | Clinical Summary ---
Author Organization [facility] Address [address] [place] [address] Phone Care Team Providers Care Genetic Counselor Name Role Phone Jax, Iona SHEPPARD, COLLAR PACKER Primary Care Provider [phone] Indra Brush MD Unavailable [phone] Nancy Sebastian APRN, CAUSTIC MIXER Unavailable [phone] Allergies Active Allergy Reactions Criticality Noted Date [...] 12/31/2024 3:00 PM CDT Outpatient Clinic Visit [facility] [address] [place] [phone] Bruce Yoon PSYD Unspecfified neurodevelopmental disorder (Primary [...] on file Legal Sex 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 Gender Identity Not on file Sexual Orientation Not on file Last Filed Vital Signs Vital Sign Reading Time Taken Comments Blood Pressure 117/66 05/27/2024 2:15 PM INFANTRY INDIRECT FIRE CREWMEMBER Pulse 73 05/27/2024 2:15 PM INFANTRY INDIRECT FIRE CREWMEMBER Temperature 37.1 C (98.8 F) 05/27/2024 11:26 AM INFANTRY INDIRECT FIRE CREWMEMBER Respiratory Rate 13 05/27/2024 2:15 PM INFANTRY INDIRECT FIRE CREWMEMBER Oxygen Saturation 99% 05/27/2024 2:15 PM INFANTRY INDIRECT FIRE CREWMEMBER Inhaled Oxygen Concentration - - Weight 72.4 kg (159 lb 9.8 oz) 05/27/2024 11:26 AM INFANTRY INDIRECT FIRE CREWMEMBER Height 157.5 cm (5' 2) 05/27/2024 11:26 AM INFANTRY INDIRECT FIRE CREWMEMBER Body Mass Index 29.19 05/27/2024 11:26 AM INFANTRY INDIRECT FIRE CREWMEMBER Plan of Treatment Upcoming Encounters Date Type Department Care Team (Latest Contact Info) Description 03/11/2025 1:00 PM CDT Outpatient [facility] [address] [place] [address] Bruce Yoon PSYD [place] Discharge Disposition: Discharged to home or Selfcare 03/27/2025 2:00 PM CDT Outpatient Clinic Visit [facility] [address] [place] [address] Bruce Yoon [place]YD [place] Discharge Disposition: Discharged to home or Selfcare 04/15/2025 3:00 PM CDT Outpatient Clinic Visit [facility] [address] [place] [address] Bruce Yoon [place]YD [place] Discharge Disposition: Discharged [...] the presence of a psychological condition. Insurance [facility] [id number] [place] [address] [place] TPL Care Teams Genetic Counselor Relationship Specialty Start Date End Date Camara, SILVER Monson, COLLAR PACKER [address] [place] [address] PCP - General Family Medicine 03/23/23 Indra Brush MD [address] [place] [address] Consulting Physician Neurology 03/23/23 Nancy Sebastian APRN, CAUSTIC MIXER [address] [place] [address] Nurse Practitioner Advanced Practice Nurse 05/19/23
--- OUTSIDE RECORDS SUMMARY | 2025-02-23 16:03 | XMS_ITS | Encounter Summary ---
Author Organization [facility] Address [address] [place] [address] Phone Care Team Providers Care Screen Making Technician Name Role Phone Jax, Iona SHEPPARD, HARVEST SUPERVISOR Primary Care Provider [phone] Indra Brush MD Unavailable [phone] Nancy Sebastian ROOM SERVICE SERVER, VENEER DRIER FEEDER Unavailable [phone] Reason for Visit * Reason Comments Medication Refill Encounter Details Date Type Department Care Team (Late st Contact Info) Description 06/21/2023 Refill [facility] - Neurology - [address] [place] [id number] Nancy Sebastian, ROOM SERVICE SERVER, VENEER DRIER FEEDER [address] [place] [address] Medication Refill Social History Tobacco Use Types Packs/Day Years Used Date Smoking Tobacco: Never Smokeless Tobacco: Never Alcohol Use Standard Drinks/Week Comments Not Currently 0 (1 standard drink = 0.6 oz pur e alcohol) Comments Unknown Sex and Gender Information Value Date Recorded Sex Assigned at Not on file 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 Gender Identity Not on file Sexual Orientation Not on file documented as of this encounter Miscellaneous Notes * Telephone Encounter - Samantha Warnre RN - 06/22/2023 8:09 AM CST Medication [...] Dept 05/19/23 Office Visit Nancy Sebastian APRN, [facility] Neurology [facility] Showing recent visits within past 365 days and meeting all other requirements Future Appointments Date Type Provider Dept 07/04/23 Appointment Nancy Sebastian APRN, [facility] Neurology [facility] 07/08/23 Appointment Indra Brush MD [facility] Showing future appointments within next 90 days and meeting all other requirements LER INSTALLER documented in this encounter Plan of Treatment Upcoming Encounters Date Type Department Care Team (Latest Contact Info) Description 03/11/2025 1:00 PM CDT Outpatient Clinic Visit [facility] [address] [place] [phone] Bruce Yoon PSYD [place] Discharge Disposition: Discharged to home or Selfcare 03/27/2025 2:00 PM CDT Outpatient Clinic Visit [facility] [address] [place] [phone] Bruce Yoon PSYD [place] Discharge Disposition: Discharged to home or Selfcare 04/15/2025 3:00 PM CDT Outpatient Clinic Visit [facility] [address] [place] [phone] Bruce Yoon PSYD [place] Discharge Disposition: Discharged to home or Selfcare documented as of this encounter Visit Diagnoses Diagnosis Chronic migraine w/o aura w/o status migrainosus, not intractable Chronic migraine without aura, without mention of intractable migraine without mention of status migrainosus documented in this encounter Care Teams Screen Making Technician Relationship Specialty Start Date End Date Iona Camara APRN, HARVEST SUPERVISOR [address] [place] [address] PCP - General Family Medicine 03/23/23 Indra Brush MD [address] [place] [address] Consulting Physician Neurology 03/23/23 Nancy Sebastian APRN, VENEER DRIER FEEDER [address] [place] [address] Nurse Practitioner Advanced Practice Nurse 05/19/23 documented as of this encounter
--- OUTSIDE RECORDS SUMMARY | 2025-02-23 16:03 | XMS_ITS | Clinical Summary ---
Author Organization [facility] Address [address] [place] [phone] Care Team Providers Care Invoice Checker Name Role Phone Iona Camara NP Primary [...] Description 02/20/2025 6:00 PM CDT Office Visit [facility] at [address] [phone] Saul Velarde NP Abscess of [...] often do you attend chur ch or mormonism services? 1 to 4 times per year 10/12/2023 Do you belong to any clubs o r organizations such as advent groups, unions, fraternal or athletic groups, or [...] Recorded Patient Health Questionnaire-2 Score 6 10/12/2023 [facility] - Occupational Stress [...] place to sleep or slept in a fci (including now)? No 10/12/2023 Personal Safety Answer Date Recorded Have you ever been in or are you currently in a harmful physical or emotional relationship or is someone making you feel afraid or unsafe? Denies 03/14/2024 Comments Unknown Sex and Gender Information Value Date Recorded Sex Assigned at Not on file Legal Sex Female 11:03 AM WHARF LABORER Gender Identity Not on file Sexual Orientation [...] BL CHOICE PRF [place] Care Teams Invoice Checker Relationship Specialty Start Date End Date Iona Camara NP [address] [place] [phone] PCP - General Nurse Practitioner 10/12/23
--- NOTE | 2025-02-23 16:11 | ED_ITS ---
HPI - Skin/Abscess/Foreign Bdy General Chief complaint: Skin/Abscess/Foreign Body Stated complaint: WOUND TO BACK TX FOR MRSA Time Seen by Provider: 02/23/25 15:53 Source: patient and RN notes reviewed Mode of arrival: ambulatory Limitations: no limitations History of Present Illness HPI narrative: 55 y/o WF in the ED for continued pain and itching d/t abscess. Pt states she noted an abscess to her back on 02/17/25, saw by urgent care 02/20/25 and started on doxycycline. Pt states abscess has decreased in size, but the swelling and pain have been so bad that her child has been expressing pus from the site. Pt end orses low grade fevers and chills. Pt endorses chronic pain, which she takes 975mg Tylenol HS only for pain as well as 25-50mg of Benadryl HS only for itching. Related Data Home Medications ?Medication ?Instructions ?Recorded ?Confirmed ?Last Taken ?Type trazodone 50 mg tablet 50 mg PO HS PRN Sleep 08/14/22 01/17/24 01/26/24 History albuterol sulfate 90 mcg/actuation 90 mcg inhalation DIRECTED 04/20/23 01/17/24 01/26/24 History aerosol inhaler liraglutide 0.6 mg/0.1 mL (18 mg/3 0.6 mg subcut DIRECTED 04/20/23 01/17/24 01/26/24 History mL) subcutaneous pen injector (Victoza 3-Yan) dicyclomine 20 mg tablet 20 mg PO PRN PRN Stomach Upset 06/05/23 01/17/24 01/26/24 History norethindrone acetate 1 mg-ethinyl 1 tablet PO DAILY 06/05/23 01/17/24 01/27/24 06:30 History estradiol 20 mcg tablet (Microgestin) tramadol 50 mg tablet 50 mg PO PRN PRN Migraine Headache 06/05/23 01/17/24 0 01/26/24 History hydroxyzine HCl 25 mg tablet 25 mg PO BID PRN Anxiety 01/17/24 01/17/24 01/26/24 History phentermine 37.5 mg capsule 37.5 mg PO DAILY PRN APPETITE 01/17/24 01/17/24 01/26/24 History SUPPRESS ubrogepant 50 mg tablet (Ubrelvy) 50 mg PO DAILY PRN Migraine 01/17/24 01/17/24 01/26/24 History Headache Allergies Allergy/AdvReac Type Severity Reaction Status Date / Time iohexol (From contrast - CT, Allergy Intermediate Hives Verified 02/23/25 14:18 X-RAY) Review of Systems Review of Systems: All systems reviewed & are unremarkable except as noted in HPI and below PMFSH Past Medical History Medical History Endometriosis Hx of migraines Social History Social History Smoking status: Never smoker Alcohol intake: current Alcohol use details: social Substance use: never Substance use type: does not use Living arrangements: with family Gender identity (if verbalized by the patient): Female Spiritual care concerns: No Exam Narrative: GENERAL: Well-appearing, well-nourished, and in no acute distress. HEAD: Normocephalic, atraumatic. EYES: PERRLA and EOMI. ENT: Nares clear, no rhinorrhea or epistaxis. Mucous membranes moist. NECK: Supple. CHEST: Clear to auscultation. No respiratory distress. HEART: Regular rate and rhythm. No murmur heard. Normal peripheral pulses. ABDOMEN: Soft, nontender, nondistended, normal active bowel sounds. EXTREMITIES: Normal range of motion. No edema. SKIN: Warm, dry, no rash. 5cm round area of eryhthema and swelling noted to right lower thoracic back w/ a 0.25cm black scab noted to center. Wound is not warm, painful to touch, no drainage noted. NEURO: No focal deficits. Alert and oriented x3. PSYCH: Normal mood and affect. Course Vital Signs Vital signs: Vital Signs Temperature 37.0 C 02/23/25 14:30 Pulse Rate 83 02/23/25 14:30 Respiratory Rate 02/23/25 14:30 Blood Pressure 143/84 H 02/23/25 14:30 Pulse Oximetry 99 02/23/25 14:30 Oxygen Delivery Room Air 02/23/25 14:30 Temperature 37.0 C 02/23/25 14:30 Pulse Rate 83 02/23/25 14:30 Respiratory Rate 20 02/23/25 14:30 Blood Pressure 143/84 H 02/23/25 14:30 Pulse Oximetry 99 02/23/25 14:30 Oxygen Delivery Room Air 02/23/25 14:30 Procedures Abscess I/D back: Date of Incision: 02/23/25 Time of Incision: 16:37 Side (if applicable): right Sedation/analgesia: none Local Anesthetic: lidocaine 1% Amount of anesthesia used (mL): 3 Technique: incised with #11 blade Amount of fluid expressed (mL): 0.5 Irrigation: Yes Packing used?: none I&D Results: Pus (minimal) and Blood Abcess I&D Additional Comments: initially cleaned w/ iodine. Lidocaine injected. Wound swab obtained and sent. dressed w/ 4X4 gauze MDM - Skin/Abscess/Foreign Bdy MDM Narrative Medical decision making narrative: My Plan Labs Ordered: CBC, CMP Imaging Ordered: None Medications Ordered: None Results: CBC and CMP unremarkable, white blood cell count, no signs and symptoms of infection Diagnosis: Skin abscess Risks: Consults: None Incision and drainage of wound completed with minimal purulence drainage, mostly blood found. Wound culture obtained and sent. Will switch antibiotics to Bactrim and Keflex for better coverage of MRSA, patient to stop doxycycline. Patient to be released home with instructions on [id number] analgesics and antihistamine. Differential Diagnosis Differential diagnosis: Likely abscess of skin or subcutaneous tissue, urticaria and cellulitis Medical Records Attestation: I reviewed the patient's medical records. Lab Data Attestation: I reviewed the patient's lab results. Discharge Plan Discharge Clinical Impression: Abscess of skin or subcutaneous tissue Qualifiers: Site of cutaneous abscess: trunk Site of cutaneous abscess of trunk: back Qualified Code(s): L02.212 - Cutaneous abscess of back [any part, except buttock] Patient Disposition: Home Condition: Stable Instructions: Antibiotic Form, Abscess (ED) Additional Instructions: Stop Doxycycline, start Bactrim and Keflex today. You can take [id number] Zyrtec during the day for itching and continue hydroxyzine before bed for itching. You can take [id number] Motrin and Tylenol for pain. I suggest 6-800 mg of Motrin up to 4 times a day and 1000 mg of Tylenol 3 to 4 times a day. Do not exceed 4000 mg of Tylenol a day. Be sure to drink plenty of water. Keep site clean with soap water and cover with your dressing of choice. Please return to the ER with any worsening symptoms. ?Follow-up with primary care provider as soon as possible. ?Take all medications as prescribed, including regularly scheduled medications. Patient Language: Macedonian Prescriptions: New cephalexin 500 mg capsule 500 mg PO Q8H Qty: 30 0RF sulfamethoxazole-trimethoprim [Bactrim DS] 800-160 mg tablet 1 tablet PO Q12H Qty: 20 0RF No Action trazodone 50 mg Tablet 50 mg PO HS PRN (Reason: Sleep) albuterol sulfate 90 mcg/actuation HFA aerosol inhaler 90 mcg INHALATION DIRECTED liraglutide [Victoza 3-Yan] 0.6 mg/0.1 mL (18 mg/3 mL) pen injector 0.6 mg SUBCUT DIRECTED Patient Comments: HAS NOT BEEN ON TILL AFTER THIS APPOINTMENT dicyclomine 20 mg tablet 20 mg PO PRN PRN (Reason: Stomach Upset) norethindrone ac-eth estradiol [Microgestin 08/06 ()] 1-20 mg-mcg tablet 1 tablet PO DAILY tramadol 50 mg tablet 50 mg PO PRN PRN (Reason: Migraine Headache) hydroxyzine HCl 25 mg tablet 25 mg PO BID PRN (Reason: Anxiety) phentermine 37.5 mg capsule 37.5 mg PO DAILY PRN (Reason: APPETITE SUPPRESS) Ubrelvy 50 mg tablet 50 mg PO DAILY PRN (Reason: Migraine Headache) omeprazole 40 mg capsule,delayed release(DR/EC) 40 mg PO .daily Qty: 30 5RF Follow-up/Referrals: Jax,Iona Rodriguez APN [Primary Care Provider] - 3 Days
[2025-02-23 16:19] LABS: Hematocrit 44.9 % (37.0-47.0); Hemoglobin 14.7 g/dL (12.0-15.0); Immature Granulocyte Percent A 0.2 % (0-0.5); Lymphocytes Absolute Auto 2.14 K/mm3 (0.9-3.2); Mean Corpuscular HGB Conc 32.7 g/dl (32-36); Mean Corpuscular Hemoglobin 31.1 pg (26-34); Mean Corpuscular Volume 95.1 fl (80-100); Nucleated Red Blood Cells Absolute Auto 0.000 K/mm3 (0.0-0.012); Nucleated Red Blood Cells Perc 0.0 % (0.0-0.2); Platelet Count Result 339 k/mm3 (150-375); Red Blood Count 4.72 M/mm3 (4.2-5.4); White Blood Count 6.6 K/mm3 (4.5-10.0)
[2025-02-23 16:28] LABS: Alanine Aminotransferase 25 U/L (6-35); Albumin Level 3.9 g/dL (3.5-5.1); Alkaline Phosphatase 43 U/L (38-126); Anion Gap 8 mmol/L (4-12); Aspartate Amino Transferase 27 U/L (14-36); Bilirubin,Total 0.3 mg/dL (0.2-1.3); Blood Urea Nitrogen 8 mg/dL (7-17); Calcium 8.7 mg/dL (8.4-10.2); Carbon Dioxide 24 mmol/L (22-30); Chloride 108 mmol/L (98-107); Estimated CRCL calculation 76 ml/min; Estimated Glomerular Filt Rate > 60; Glucose 100 mg/dL (65-110); Potassium 4.4 mmol/L (3.4-5.0); Sodium 140 mmol/L (137-145); Total Protein 7.6 g/dL (6.3-8.2)
[2025-02-23] MEDS: KETOROLAC 30 MG/ML VIAL (*BKC) IM (16:58)
[2025-02-23 17:05] VITALS: BP 136/81; PULSE 88; RESP 15; O2SAT 100
== END 2025-02-23 17:06 | disposition home or self-care (01) ==
PROVIDERS: Emergency Provider Registered Nurse Emergency; PCP Nurse Practitioner Family
DX: L02.212 Cutaneous abscess of back [any part, except buttock and flank] (principal)
CPT/HCPCS: 10060; 36415; 80053; 85025; 87070; 87075; 96372; 99283; J1885; J2003